=== PATIENT | male | born 1955 | race Caucasian/White ===

== ENCOUNTER 2016-11-30 04:42 | Inpatient (IN) | payer BC ==
[~2016-11-30] VITALS: Ht 177.8 cm; Wt 125.0 kg
[~2016-11-30 04:42] MED LIST: HYDROCHLOROTH12.5 M3 PO; LISINOPRIL20 MG PO; NAPROSYN500 MG PO; NORCO 5/3251 TABLET PO; PRILOSEC20 MG PO
[2016-11-30 05:38] LABS: HEMATOCRIT 41.7 % (38.0-50.0); MCHC 35.5 G/DL (30.0-36.0); MCV 90.1 FL (86-99); MEAN PLAT.VOLUME 9.4 uM^3 (9.0-12.4); PLATELET COUNT 112 K/uL (156-360); RBC DIS.WIDTH-CV 12.3 % (11.8-14.6); RBC DIS.WIDTH-SD 40.1 % (39-53); RED BLOOD COUNT 4.63 M/uL (4.00-5.50)
[2016-11-30 05:49] LABS: CHLORIDE 94 mEq/L (99-109); POTASSIUM 3.4 mEq/L (3.7-5.4); SODIUM 137 mEq/L (136-147)
[2016-11-30 05:50] LABS: GLUCOSE 94 mg/dL (70-99)
[2016-11-30 05:52] LABS: ANION GAP 12 MEQ/L (2-14)
[2016-11-30 05:54] LABS: GFR ESTIMATE (CALCULATED) > 59 mL/min/
[2016-11-30 05:55] LABS: UREA NITROGEN (BUN) 11 mg/dL (9-23)
[2016-11-30 06:02] LABS: TROP-I INTERPRETATION NEGATIVE; TROPONIN-I < 0.01 ng/mL (0.0-0.30)
[2016-11-30 08:40] LABS: MAGNESIUM 0.7 mg/dL (1.3-2.7)
[2016-11-30] MEDS ORDERED: TAZTIA XT120 M1 PO (09:11)
[2016-11-30] MEDS ORDERED: ELIQUIS5 MG PO ×2 (09:11→12:18)
[2016-11-30] MEDS ORDERED: SYMBICORT60 INHALAT IH (09:12)
[2016-11-30] MEDS ORDERED: PROAIR HFA8.5 GM IH (09:12)
[2016-11-30 09:25] LABS: HDL CHOLESTEROL 40 MG/DL (Desirable>=40); LDL CHOLESTEROL 73 mg/dL (Desirable<100); NON-HDL CHOLESTEROL 92 mg/dL (Desirable<160); TOTAL CHOLESTEROL 132 mg/dL (Desirable<200); TRIGLYCERIDES 97 MG/DL (Normal: <150)
[2016-11-30 12:00] VITALS: BP 140/91
[2016-11-30 12:42] LABS: TROP-I INTERPRETATION NEGATIVE; TROPONIN-I < 0.01 ng/mL (0.0-0.30)
[2016-11-30 13:16] LABS: METH RESISTANT S AUREUS PCR NEGATIVE (NEGATIVE); PROBE CHECK PASS; SPECIMEN PROCESSING CONTROL PASS
[2016-11-30 14:00] VITALS: BP 139/82
[2016-11-30 16:00] VITALS: BP 134/71
[2016-11-30 18:22] LABS: TROP-I INTERPRETATION NEGATIVE; TROPONIN-I < 0.01 ng/mL (0.0-0.30)
[2016-11-30 20:00] VITALS: BP 134/82
[2016-12-01] VITALS (7 sets, daily range): BP systolic 104–147; BP diastolic 50–85
[2016-12-01 00:44] LABS: POINT-OF-CARE METER ID UU14174217
[2016-12-01 05:17] LABS: HEMATOCRIT 38.3 % (38.0-50.0); MCH 31.9 PG (29.0-34.0); MCHC 35.5 G/DL (30.0-36.0); MCV 89.9 FL (86-99); MEAN PLAT.VOLUME 9.5 uM^3 (9.0-12.4); PLATELET COUNT 122 K/uL (156-360); RBC DIS.WIDTH-CV 12.2 % (11.8-14.6); RED BLOOD COUNT 4.26 M/uL (4.00-5.50); WHITE BLOOD COUNT 10.3 K/uL (4.1-10.2)
[2016-12-01 05:19] LABS: CHLORIDE 99 mEq/L (99-109); POTASSIUM 3.2 mEq/L (3.7-5.4); SODIUM 139 mEq/L (136-147)
[2016-12-01 05:23] LABS: ANION GAP 10 MEQ/L (2-14)
[2016-12-01 05:25] LABS: ALKALINE PHOSPHATASE 56 IU/L (3-129); GFR ESTIMATE (CALCULATED) > 59 mL/min/
[2016-12-01 05:26] LABS: UREA NITROGEN (BUN) 15 mg/dL (9-23)
[2016-12-01 05:44] LABS: GLUCOSE 197 mg/dL (70-99)
[2016-12-01 08:39] LABS: MAGNESIUM 1.2 mg/dL (1.3-2.7)
[2016-12-02] VITALS (12 sets, daily range): BP systolic 0–131; BP diastolic 0–93
[2016-12-02 06:00] LABS: EOSINOPHIL (%) 0 % (0-5); HEMATOCRIT 38.3 % (38.0-50.0); IMMATURE GRANULOCYTE (%) 0.9 % (0.0-0.7); IMMATURE GRANULOCYTE COUNT 0.1 K/uL; INSTRUMENT ABS NEUTROPHIL CT 12.9 K/uL; LYMPHOCYTE COUNT 0.7 K/uL (1.0-2.8); MCH 31.6 PG (29.0-34.0); MCHC 33.9 G/DL (30.0-36.0); MCV 93.2 FL (86-99); MEAN PLAT.VOLUME 9.8 uM^3 (9.0-12.4); MONOCYTE (%) 4.1 % (3-12); MONOCYTE COUNT 0.6 K/uL (0-0.8); NEUTROPHIL COUNT 12.9 K/uL (1.8-6.4); PLATELET COUNT 149 K/uL (156-360); RBC DIS.WIDTH-CV 12.4 % (11.8-14.6); RBC DIS.WIDTH-SD 42.5 % (39-53); RED BLOOD COUNT 4.11 M/uL (4.00-5.50); WHITE BLOOD COUNT 14.4 K/uL (4.1-10.2)
[2016-12-02 06:24] LABS: ANION GAP 10 MEQ/L (2-14); CHLORIDE 99 MEQ/L (99-109); GFR ESTIMATE (CALCULATED) > 59 mL/min/; GLUCOSE 139 mg/dL (70-99); MAGNESIUM 1.7 mg/dl (1.3-2.7); SAMPLE HEMOLYSIS CHECK 0; SAMPLE ICTERIC CHECK 0; SAMPLE LIPEMIA CHECK 0; SODIUM 138 MEQ/L (136-147)
[2016-12-02 06:29] LABS: POTASSIUM 4.2 MEQ/L (3.7-5.4); UREA NITROGEN (BUN) 28 mg/dL (9-23)
[2016-12-03] VITALS (9 sets, daily range): BP systolic 108–142; BP diastolic 70–93
[2016-12-03 06:03] LABS: EOSINOPHIL (%) 0 % (0-5); HEMATOCRIT 38.2 % (38.0-50.0); IMMATURE GRANULOCYTE COUNT 0.1 K/uL; INSTRUMENT ABS NEUTROPHIL CT 9.3 K/uL; LYMPHOCYTE COUNT 0.6 K/uL (1.0-2.8); MCH 32.8 PG (29.0-34.0); MCHC 34.8 G/DL (30.0-36.0); MCV 94.3 FL (86-99); MEAN PLAT.VOLUME 9.9 uM^3 (9.0-12.4); MONOCYTE COUNT 0.3 K/uL (0-0.8); NEUTROPHIL (%) 90.5 % (45-76); NEUTROPHIL COUNT 9.3 K/uL (1.8-6.4); PLATELET COUNT 146 K/uL (156-360); RBC DIS.WIDTH-CV 12.4 % (11.8-14.6); RED BLOOD COUNT 4.05 M/uL (4.00-5.50); WHITE BLOOD COUNT 10.3 K/uL (4.1-10.2)
[2016-12-03 06:39] LABS: ANION GAP 6 MEQ/L (2-14); CHLORIDE 100 MEQ/L (99-109); GFR ESTIMATE (CALCULATED) > 59 mL/min/; GLUCOSE 157 mg/dL (70-99); POTASSIUM 4.4 MEQ/L (3.7-5.4); SAMPLE HEMOLYSIS CHECK 0; SAMPLE ICTERIC CHECK 0; SAMPLE LIPEMIA CHECK 0; SODIUM 139 MEQ/L (136-147); UREA NITROGEN (BUN) 24 mg/dL (9-23)
[2016-12-03 06:47] LABS: MAGNESIUM 2.2 mg/dl (1.3-2.7)
[2016-12-03 14:04] LABS: TROP-I INTERPRETATION NEGATIVE; TROPONIN-I < 0.01 ng/mL (0.0-0.30)
[2016-12-03 19:18] LABS: TROP-I INTERPRETATION NEGATIVE; TROPONIN-I < 0.01 ng/mL (0.0-0.30)
[2016-12-04] VITALS (10 sets, daily range): BP systolic 117–137; BP diastolic 62–96
[2016-12-05 03:28] VITALS: BP 132/82
[2016-12-05] MEDS ORDERED: METOPROLOL TART75 MG PO (07:32)
[2016-12-05] MEDS ORDERED: FOLIC ACID1 MG PO (07:32)
[2016-12-05] MEDS ORDERED: THERAGRAN1 TABLET PO (07:32)
[2016-12-05] MEDS ORDERED: PREDNISONE10 MG PO (07:32)
[2016-12-05] MEDS ORDERED: Thiamine,Vitamin B1 PO (07:32)
[2016-12-05 07:58] VITALS: BP 119/84
== END 2016-12-05 09:09 | disposition home or self-care (01) | DRG 309 ==
LOC: EME 04:42 → EDOF 07:55 → 4WEST 07:55 → 4EAST 12-04 10:55
PROVIDERS: Internal Medicine
DX: I48.1 Persistent atrial fibrillation (principal); J44.1 Chronic obstructive pulmonary disease with (acute) exacerbation; I10 Essential (primary) hypertension; K21.9 Gastro-esophageal reflux disease without esophagitis; E66.9 Obesity, unspecified; E87.6 Hypokalemia; D69.6 Thrombocytopenia, unspecified; F10.20 Alcohol dependence, uncomplicated; G47.30 Sleep apnea, unspecified; Z68.39 Body mass index [BMI] 39.0-39.9, adult; E83.42 Hypomagnesemia; F17.200 Nicotine dependence, unspecified, uncomplicated; E87.70 Fluid overload, unspecified; Z79.01 Long term (current) use of anticoagulants; D72.829 Elevated white blood cell count, unspecified; T38.0X5A Adverse effect of glucocorticoids and synthetic analogues, initial encounter
CPT/HCPCS: 71020; 80048; 80053; 80061; 82272; 82948; 83735; 83880; 84100; 84443; 84484; 85025; 85027; 87641; 93005; 93306; 94640; 94640 76; 94799; 99202; 99281; 99284; J1940; J2060; J2920; J3475; J7050; J7512

== ENCOUNTER 2016-12-16 08:52 | Day surgery (SDC) | payer BC ==
[~2016-12-16] VITALS: Ht 175.3 cm; Wt 127.0 kg
[~2016-12-16 08:52] MED LIST changes: +ELIQUIS5 MG PO; +FOLIC ACID1 MG PO; +METOPROLOL TART75 MG PO; +PREDNISONE10 MG PO; +PROAIR HFA8.5 GM IH; +SYMBICORT60 INHALAT IH; +TAZTIA XT120 M1 PO; +THERAGRAN1 TABLET PO; +Thiamine,Vitamin B1 PO
== END 2016-12-16 11:55 | disposition home or self-care (01) ==
LOC: CATH 08:52
PROC: 5A2204Z Restoration of Cardiac Rhythm, Single (ICD-10-PCS; principal; 2016-12-16)
DX: I48.91 Unspecified atrial fibrillation (principal); E66.9 Obesity, unspecified; Z68.41 Body mass index [BMI] 40.0-44.9, adult; F10.10 Alcohol abuse, uncomplicated; J44.9 Chronic obstructive pulmonary disease, unspecified
CPT/HCPCS: 93005; J1940

== ENCOUNTER 2017-01-16 08:47 | Day surgery (SDC) | payer BC ==
[~2017-01-16] VITALS: Ht 175.3 cm; Wt 123.0 kg
[~2017-01-16 08:47] MED LIST changes: +ADVAIR 250/501 DISK IH; +AMIODARONE HCL200 MG PO; +FUROSEMIDE20 MG PO
== END 2017-01-16 10:55 | disposition home or self-care (01) ==
LOC: CATH 08:47
PROC: 5A2204Z Restoration of Cardiac Rhythm, Single (ICD-10-PCS; principal; 2017-01-16)
DX: I48.1 Persistent atrial fibrillation (principal); I11.0 Hypertensive heart disease with heart failure; I50.31 Acute diastolic (congestive) heart failure; J44.9 Chronic obstructive pulmonary disease, unspecified; E66.9 Obesity, unspecified; F17.210 Nicotine dependence, cigarettes, uncomplicated; F10.10 Alcohol abuse, uncomplicated; K21.9 Gastro-esophageal reflux disease without esophagitis; Z82.0 Family history of epilepsy and other diseases of the nervous system; Z79.01 Long term (current) use of anticoagulants; Z88.0 Allergy status to penicillin
CPT/HCPCS: 93005; J2250

== ENCOUNTER 2017-03-06 08:27 | Day surgery (SDC) | payer BC ==
[~2017-03-06] VITALS: Ht 175.3 cm; Wt 123.0 kg
== END 2017-03-06 09:30 | disposition home or self-care (01) ==
LOC: CATH 08:27
DX: I48.91 Unspecified atrial fibrillation (principal); Z53.09 Procedure and treatment not carried out because of other contraindication; R00.1 Bradycardia, unspecified
CPT/HCPCS: 93005

== ENCOUNTER 2017-09-17 15:55 | Emergency (ER) | payer BC ==
[~2017-09-17] VITALS: Ht 175.3 cm; Wt 122.7 kg
[2017-09-17 17:35] LABS: HEMOGLOBIN 15.8 G/DL (12.5-16.6); MCH 33.1 PG (29.0-34.0); MCHC 35.1 G/DL (30.0-36.0); MCV 94.3 FL (86-99); PLATELET COUNT 173 K/uL (156-360); RBC DIS.WIDTH-CV 12.6 % (11.8-14.6); RED BLOOD COUNT 4.77 M/uL (4.00-5.50); WHITE BLOOD COUNT 8.4 K/uL (4.1-10.2)
[2017-09-17 17:44] LABS: CHLORIDE 103 mEq/L (99-109); POTASSIUM 4.2 mEq/L (3.7-5.4); SODIUM 137 mEq/L (136-147)
[2017-09-17 17:45] LABS: GLUCOSE 136 mg/dL (70-99)
[2017-09-17 17:49] LABS: CREATININE 1.1 mg/dL (0.6-1.3); GFR ESTIMATE (CALCULATED) > 59 mL/min/ (58.99-99999)
[2017-09-17 17:50] LABS: UREA NITROGEN (BUN) 16 mg/dL (9-23)
[2017-09-17 18:33] LABS: APPEARANCE SL.HAZY ((CLEAR)); BILIRUBIN NEGATIVE; BLOOD LARGE; COLOR YELLOW ((YELLOW)); GLUCOSE (STRIP) NEGATIVE; KETONES NEGATIVE; LEUKOCYTES NEGATIVE; NITRITE NEGATIVE; PROTEIN (STRIP) 30; SPECIFIC GRAVITY 1.024 (1.000-1.030)
[2017-09-17 18:48] LABS: BACTERIA NONE SEEN /HPF; EPITHELIAL CELLS RARE /HPF; MUCUS TRACE /LPF; RED BLOOD CELLS 40-50 /HPF (0-5); UCUL ADDED? NO; WHITE BLOOD CELLS 0-5 /HPF (0-5)
[2017-09-17] MEDS ORDERED: ZOFRAN4 MG PO (19:33)
[2017-09-17] MEDS ORDERED: PERCOCET 5/31 TABLET PO (19:33)
[2017-09-17 20:26] VITALS: BP 130/76
== END 2017-09-17 20:50 | disposition home or self-care (01) ==
LOC: EME 15:55
PROVIDERS: Emergency Medicine
DX: K42.9 Umbilical hernia without obstruction or gangrene (principal); R59.0 Localized enlarged lymph nodes; R31.9 Hematuria, unspecified; Z88.0 Allergy status to penicillin
CPT/HCPCS: 74176; 80048; 81003; 85027; 99281; 99285; J1885; J2405; J3010; J7030